=== PATIENT | male | born 1985 | race Caucasian/White ===

== ENCOUNTER 2019-03-17 11:59 | Emergency (ER) | payer OTHER ==
[~2019-03-17] VITALS: Ht 167.6 cm; Wt 73.2 kg
[2019-03-17 12:02] VITALS: Ht 167.6 cm; Wt 73.2 kg
[2019-03-17] MEDS ORDERED: KETOROLAC 30 MG INJ IV STA (13:17)
[2019-03-17] MEDS ORDERED: morphine 2 MG INJ IV STA (13:17)
--- NOTE | 2019-03-17 13:31 | ERD ---
ER Documentation Chief Complaint Chief Complaint painfurl urination x1wk, sent fr clinic HPI 34-year-old male presents with complaint of painful urination, bilateral flank pain, testicular pain, and penile discharge for the past week. Patient was referred from urgent care this morning to rule out kidney stone. In addition patient states that he has had a history of small stones but not big stones in his kidneys. Patient states that the flank pain is made worse when he drinks beer. Patient is also concerned that he might of had some urinary retention which seems to have since resolved. Patient denies fevers, chills, abdominal pain, hematuria. ROS All systems reviewed and are negative except as per history of present illness. Medications Home Meds Active Scripts Ibuprofen* (Motrin*) 600 Mg Tab, 600 MG PO Q6, #30 TAB Prov:KIMBERLY DUKES 03/17/19 Cephalexin* (Keflex*) 500 Mg Capsule, 500 MG PO BID for 14 Days, CAP Prov:KIMBERLY DUKES 03/17/19 Allergies Allergies: Coded Allergies: No Known Allergy (Unverified , 03/17/19) PMhx/Soc Hx Neurological Disorder: No Hx Respiratory Disorders: No Hx Cardiac Disorders: No Hx Psychiatric Problems: No Hx Alcohol Use: No Hx Substance Use: No Hx Tobacco Use: Yes Smoking Status: Current every day smoker FmHx Family History: No diabetes, No coronary disease, No other Physical Exam Vitals Vital Signs Date Temp Pulse Resp B/P (MAP) Pulse Ox O2 O2 Flow FiO2 Time Delivery Rate 03/17/19 97.3 70 16 141/92 100 Room Air 15:52 (108) 03/17/19 98.5 85 18 140/81 99 12:02 (100) Physical Exam Const: No acute distress Head: Atraumatic Eyes: Normal Conjunctiva ENT: Normal External Ears, Nose and Mouth. Neck: Full range of motion. No meningismus. Resp: Clear to auscultation bilaterally Cardio: Regular rate and rhythm, no murmurs Abd: Soft, non tender, non distended. Normal bowel sounds Skin: No petechiae or rashes Back: No midline. Left-sided CVA tenderness. Ext: No cyanosis, or edema Neur: Awake and alert Psych: Normal Mood and Affect Result Diagram: 03/17/19 1302 03/17/19 1302 Results 24 hrs Laboratory Tests Test 03/17/19 13:02 White Blood Count 9.1 10^3/ul Red Blood Count 5.28 10^6/ul Hemoglobin 16.5 g/dl Hematocrit 47.6 % Mean Corpuscular Volume 90.2 fl Mean Corpuscular Hemoglobin 31.3 pg Mean Corpuscular Hemoglobin Concent 34.7 g/dl Red Cell Distribution Width 13.6 % Platelet Count 277 10^3/UL Mean Platelet Volume 10.3 fl Immature Granulocytes % 0.300 % Neutrophils % 67.2 % Lymphocytes % 24.1 % Monocytes % 7.0 % Eosinophils % 0.7 % Basophils % 0.7 % Nucleated Red Blood Cells % 0.0 /100WBC Immature Granulocytes # 0.030 10^3/ul Neutrophils # 6.1 10^3/ul Lymphocytes # 2.2 10^3/ul Monocytes # 0.6 10^3/ul Eosinophils # 0.1 10^3/ul Basophils # 0.1 10^3/ul Nucleated Red Blood Cells # 0.0 10^3/ul Urine Color YELLOW Urine Clarity CLEAR Urine pH 8.0 Urine Specific [place] 1.015 Urine Ketones NEGATIVE mg/dL Urine Nitrite NEGATIVE mg/dL Urine Bilirubin NEGATIVE mg/dL Urine Urobilinogen NEGATIVE mg/dL Urine Leukocyte Esterase TRACE Shanika/ul Urine Microscopic RBC 0 /HPF Urine Microscopic WBC 1 /HPF Urine Hemoglobin NEGATIVE mg/dL Urine Glucose 1+ mg/dL Urine Total Protein NEGATIVE mg/dl Sodium Level 144 mmol/L Potassium Level 3.9 mmol/L Chloride Level 104 mmol/L Carbon Dioxide Level 27 mmol/L Anion Gap 13 Blood Urea Nitrogen 11 mg/dl Creatinine 0.94 mg/dl Est Glomerular Filtrat Rate mL/min > 60 mL/min Glucose Level 119 mg/dl Calcium Level 9.7 mg/dl Total Bilirubin 0.3 mg/dl Direct Bilirubin 0.00 mg/dl Indirect Bilirubin 0.3 mg/dl Aspartate Amino Transf (AST/SGOT) 40 IU/L Alanine Aminotransferase (ALT/SGPT) 43 IU/L Alkaline Phosphatase 124 IU/L Total Protein 8.7 g/dl Albumin 4.9 g/dl Globulin 3.80 g/dl Albumin/Globulin Ratio 1.28 Lipase 47 U/L Current Medications Medications Dose Sig/Eduardo Start Time Status Last (Trade) Ordered Route PRN Stop Time Admin Dose Reason Admin Ketorolac 30 mg ONCE STAT 03/17/19 DC 03/17/19 Tromethamine IV 13:17 03/17/19 13:56 (Toradol) 13:18 Morphine 2 mg ONCE STAT 03/17/19 DC 03/17/19 Sulfate IV 13:17 03/17/19 14:39 (morphine) 13:18 Ceftriaxone 1 gm ONCE ONCE 03/17/19 DC 03/17/19 Sodium IM 15:30 03/17/19 15:36 (Rocephin) 15:31 1,000 mg ONCE ONCE 03/17/19 DC 03/17/19 Azithromycin PO 15:30 03/17/19 15:36 (Zithromax) 15:31 Procedures/MDM DIAGNOSTIC IMAGING REPORT Patient: KAREN SCHMIDT : 1985 Age: 34 Sex: M MR #: [id number] DOS: 03/17/19 1252 Ordering MD: KIMBERLY DUKES Location: [facility] Room/Bed: PROCEDURE: CT Abdomen and Pelvis without contrast. CLINICAL INDICATION: 34 year-old male Abdominal Pain TECHNIQUE: Routine abdominopelvic CT was performed without intravenous contrast. Coronal and sagittal reformats were provided. DICOM images are available. Oral contrast was not administered. Radiation dose: CTDI (mGy): 8.77 mGy and DLP(mGy-cm): 516.88 mGy.cm One or more of the following dose reduction techniques were used: - Automated exposure control. - Adjustment of the mA and/or kV according to patient size. - Use of iterative reconstruction technique. COMPARISON: CT ABD 06/13/2008. FINDINGS: Lower Thorax: Visualized lung bases are clear. Liver: The liver is mildly enlarged measuring up to 18.5 cm in greatest craniocaudad dimension. The nonenhanced liver is normal in overall morphology and attenuation. No focal mass lesion identified, allowing for absence of co ntrast or multiphase imaging. Biliary/gallbladder: Gallbladder surgically absent. No evidence of intra or extrahepatic biliary duct dilatation. Pancreas: Overall normal morphology and attenuation. No evidence of peripancreatic fluid or stranding. Stomach/duodenum: The stomach is partially collapsed, but grossly unremarkable. Spleen: Normal in size and morphology. Adrenals: No adrenal masses identified. Kidneys: Overall symmetric shape, size, and attenuation. No evidence of obstructing urolithiasis or hydroureteronephrosis. Retroperitoneum: No evidence of aneurysm. No evidence of retroperitoneal hemorrhage. Mesentery/Peritoneum: No evidence of free fluid or air. There is metallic clip just left of the umbilicus level and midline in the infraumbilical lower abdominal wall. Hollow viscera: The ileocecal valve appears mildly incompetent with mild fecalization and gas through out the small bowel loops. Normal appendix. There is formed stool within the colonic loops. There is no evidence of bowel obstruction. Pelvis/Reproductive organs: No pelvic masses or sidewall adenopathy identified. No free fluid identified in the pelvis. Musculoskeletal: No osseous destructive lesions identified. IMPRESSION: Mild hepatomegaly. Status post cholecystectomy. Normal appendix. 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 No CT evidence of acute intra-abdominal findings such as hemorrhage, free fluid or air. RPTAT: EE Physician Eyal Date Time Electronically viewed and signed by Physician Eyal on 03/17/2019 15:11 BP/ CC: KIMBERLY DUKES [id number] DIAGNOSTIC IMAGING REPORT Patient: KAREN SCHMIDT : 1985 Age: 34 Sex: M MR #: [id number] DOS: 03/17/19 1252 Ordering MD: KIMBERLY DUKES Location: [facility] Room/Bed: PROCEDURE: Scrotal ultrasound CLINICAL INDICATION: Bilateral testicular pain. TECHNIQUE: Scrotal ultrasound was performed with sagittal and transverse views. Jo scale and color imaging was performed. Images were reviewed on high resolution PACS monitors. COMPARISON: None available FINDINGS: The right testicle measures 3.6 x 2.1 x 3.0 cm. The left testicle measures 3.8 x 1.9 x 2.6 cm. There is normal size and echogenicity and morphology bilaterally. There is normal blood flow seen bilaterally. The epididymi are normal. No hydrocele is identified. There is no evidence for varicocele. The soft tissues are unremarkable. No mass or cyst or other abnormality is seen. IMPRESSION: 1. Unremarkable scrotal ultrasound. 2. Symmetrically normal testes and epididymi. RPTAT: [facility] Physician Amber Date Time Electronically viewed and signed by Mateus Davison Physician on 03/17/2019 14:32 JH/ CC: KIMBERLY DUKES [id number] MDM: Patient was referred from primary care provider to rule out kidney stones given his flank pain and history of kidney stones complaint of dysuria so I did feel that a CT was appropriate in this case. CT results were within normal limits. In addition, given patient's complaint of scrotal pain ultrasound of scrotum was performed. Results were within normal limits as well. UA showed mild leukocyte esterase the patient will be treated for UTI. In addition, given patient's complaint of penile discharge patient will be treated for possible STD with azithromycin and ceftriaxone. I have low suspicion for acute coronary syndrome, AAA, mesenteric ischemia, lower lobe pneumonia, DKA, bowel perforation, cholecystitis, choledocholithiasis, ascending cholangitis, hepatic abscess, pancreatitis, PUD, splenic rupture, diverticulitis, pyelonephritis, nephrolithiasis, appendicitis, [testicular torsion]. At this time, patient is stable for discharge and outpatient management. I have instructed the patient to follow-up with his/her primary care physician in 1-2 days. I have discussed with the patient the possibility of needing to see a specialist for further workup and imaging studies if symptoms persist. I have instructed the patient to promptly return to the ER for any new or worsening symptoms including but not limited to increased pain, fever, nausea, vomiting, weakness or LOC. The patient and/or family expressed understanding of and agreement with this plan. All questions were answered. Home care instructions were provided. DISCLAIMER: Inadvertent spelling and grammatical errors are likely due to EHR/dictation software use and do not reflect on the overall quality of patient care. Also, please note that the electronic time recorded on this note does not necessarily reflect the actual time of the patient encounter. Departure Diagnosis: Primary Impression: Scrotal pain Additional Impressions: Flank pain Dysuria Condition: Stable KIMBERLY DUKES Mar 17, 2019 13:31
[2019-03-17] MEDS ORDERED: CEPH-443 PO ×2 (15:22→15:26)
[2019-03-17] MEDS ORDERED: CEFTRIAXONE 1 GM INJ IM ONE (15:30)
[2019-03-17] MEDS ORDERED: AZITHROMYCIN 500 MG TAB PO ONE (15:30)
[2019-03-17] MEDS ORDERED: IBUP-1542 PO (15:31)
[2019-03-17 15:52] VITALS: BP 141/92; PULSE 70; RESP 16
== END 2019-03-17 15:53 | disposition home or self-care (01) ==
LOC: FTE 11:59
DX: N50.82 Scrotal pain (principal); R10.9 Unspecified abdominal pain; F17.210 Nicotine dependence, cigarettes, uncomplicated
CPT/HCPCS: 36415; 74176; 76870; 80053; 81001; 83690; 85025; 96372; 96374; 96375; J0696; J1885; J2270; Z7502; Z7610